=== PATIENT | male | born 1940 | race Caucasian/White ===

== ENCOUNTER 2017-06-12 15:21 | Outpatient (CLI) | payer MEDICARE ==
--- OUTSIDE RECORDS SUMMARY | 2017-06-12 15:26 | XMS | Clinical Summary ---
:1940 Author Organization [facility] Address [address] [place] [address] Phone Care Team Providers Name Role Phone , Primary Care Provider Unavailable Allergies Not on File Current Medications Not on file Active Problems Not on file Social History Tobacco Use Types Packs/Day Years Used Date Never Assessed Sex Assigned at Date Recorded Not on file Last Filed Vital Signs Not on file Plan of Treatment Not on file Results Not on filefrom Last 3 Months
--- NOTE | 2017-06-12 16:53 | MRI ---
MRI OF THE CERVICAL SPINE WITHOUT CONTRAST: Comparison: None. History: Cervical radiculopathy. Technique: Multiplanar, multisequence MRI images were obtained of the cervical spine without contras t. FINDINGS: Generalized disc desiccation is seen. There is loss of intervertebral disc space height in the mid c ervical spine. The visualized cord demonstrates normal signal throughout. The craniocervical junctio n is unremarkable. No prevertebral soft tissue swelling is seen. The paraspinal soft tissues are unr emarkable. C2-3: Unremarkable. C3-4: A moderate disc osteophyte complex is seen. Moderate bilateral posterior facet arthrosis. Mode rate central canal stenosis. Severe right and moderate left neural foraminal stenosis. C4-5: A moderate disc osteophyte complex is seen. Moderate left and mild right posterior facet arthr osis. Moderate central canal stenosis. Moderate right and mild left neural foraminal stenosis. C5-6: A large disc osteophyte complex is seen. Mild bilateral facet arthrosis. Severe central canal stenosis. Severe left and moderate right neural foraminal stenosis. C6-7: A moderate disc osteophyte complex is seen. No posterior facet arthrosis. Moderate to severe c entral canal stenosis. Severe bilateral neural foraminal stenosis. C7-T1: Unremarkable. IMPRESSION: Degenerative changes of the cervical spine as above. POS: [facility]
== END 2017-06-12 15:22 | disposition home or self-care (01) ==
LOC: MRI 15:21
PROVIDERS: ATTEND Orthopaedic Surgery Hand Surgery
DX: M54.12 Radiculopathy, cervical region (principal); M48.02 Spinal stenosis, cervical region; M47.812 Spondylosis without myelopathy or radiculopathy, cervical region
CPT/HCPCS: 72141

== ENCOUNTER 2017-07-02 07:24 | Emergency (ER) | payer MEDICARE ==
[2017-07-02 09:07] LABS: Anion Gap 14 mmol/L (10-20); BUN (Urea Nitrogen) 11 mg/dL (8.4-25.7); Calc. Creatinine Clearance 0 mL/min (70-130); Calcium 8.8 mg/dL (7.8-10.44); Carbon Dioxide 23 mmol/L (23-31); Chloride 100 mmol/L (98-107); Estimated GFR-MDRD 87
[2017-07-02 09:21] LABS: Bilirubin Negative (Negative); Blood, Urine Large (Negative); Glucose, Urine (Dipstick) Negative (Negative); Ketone, Urine Negative (Negative); Nitrite Negative (Negative); Protein, Urine (Dipstick) 100 mg/dL (Neg-Trace); Urobilinogen 0.2 mg/dL (0.2-1.0)
[2017-07-02 09:23] LABS: Bacteria/HPF Rare-Few HPF (None Seen); Hyaline Casts/LPF 0-3 HYALINE CAST LPF (0-3 Hyaline); RBC/HPF GREATER THAN 50-TNTC HPF (0-3); Squamous Epithelial None Seen HPF (0-3)
[2017-07-02 09:33] LABS: #Basophils 0.1 thou/uL (0.0-0.2); #Eosinphils 0.2 thou/uL (0.0-0.7); #Lymphocytes 1.3 thou/uL (1.20-3.40); #Monocytes 0.8 thou/uL (0.11-0.59); #Neutrophils 10.1 thou/uL (1.40-6.50); %Basophils 0.4 % (0.0-1.0); %Eosinophils 1.8 % (0.0-10.0); %Monocytes 6.4 % (0.0-10.0); Hematocrit 37.1 % (42.0-52.0); Mean Platelet Volume 6.2 fL (7.4-10.4); Red Blood Cell (RBC) Count 4.11 mill/uL (4.70-6.10); White Blood Cell (WBC) Count 12.5 thou/uL (4.8-10.8)
[2017-07-02] MEDS ORDERED: Ciprofloxacin 500 MG TAB ONE (10:26)
--- NOTE | 2017-07-02 10:26 | CT ---
CT ABDOMEN AND PELVIS WITH IV CONTRAST: Date: 07-02-17 History: Hematuria. Dysuria. Suprapubic tenderness. Comparison: None. FINDINGS: There is minimal bibasilar atelectasis. Post cholecystectomy changes are noted. There is a 3.2 cm mass involving the left adrenal gland which cannot be further characterized on thi s nonenhanced CT scan exam. The liver, spleen, pancreas, right adrenal gland, bilateral kidneys, and partially distended urinary bladder demonstrate a normal CT appearance. There is a duodenum diverticulum seen at the junction of the second and third portion of the duodenu m. A few scattered colonic diverticula are noted. The appendix is normal in caliber. A few prominent but nonspecific loops of small bowel are seen in the pelvis. Degenerative changes are noted in the spine. There is grade I to II anterolisthesis of L 5 on S1. There is a small subcentimeter sclerotic lesion in the right iliac bone just to the sacroiliac joint which is probably related to small bowel island. No additional lytic or osseous lesions are seen. IMPRESSION: 1. Left adrenal nodule measuring 3.2 cm which cannot be further characterized on this exam. CT scan examination of the abdomen without IV contrast is recommended for further evaluation. 2. Post cholecystectomy changes. 3. Evidence of prostatectomy. 4. Duodenal diverticulum. 5. No acute findings in the abdomen or pelvis. 6. Degenerative changes in the spine with grade I to II anterolisthesis of L5 on S1. 7. Atherosclerotic vascular disease. POS: [facility]
[2017-07-02] MEDS ORDERED: ISOVUE-370 76%-LOCM 1 ML ONE (16:03)
--- OUTSIDE RECORDS SUMMARY | 2017-07-08 11:27 | XMS | Clinical Summary ---
:1940 Author Organization [facility] Address [address] [place] [address] Phone Care Team Providers Name Role Phone [...]
== END 2017-07-02 10:40 | disposition home or self-care (01) ==
LOC: ERS 07:24
DX: N30.91 Cystitis, unspecified with hematuria (principal); E11.9 Type 2 diabetes mellitus without complications; E78.5 Hyperlipidemia, unspecified; I10 Essential (primary) hypertension; Z85.46 Personal history of malignant neoplasm of prostate; Z79.4 Long term (current) use of insulin; Z79.899 Other long term (current) drug therapy
CPT/HCPCS: 36415; 74177; 80048; 81003; 81015; 85025; 87077; 87086; 87186; 96360; 96361

== ENCOUNTER 2017-07-05 13:55 | Outpatient (CLI) | payer MEDICARE ==
[2017-07-05 15:49] LABS: Hematocrit 39.1 % (42.0-52.0); Mean Platelet Volume 6.9 fL (7.4-10.4); Red Blood Cell (RBC) Count 4.36 mill/uL (4.70-6.10)
[2017-07-05 16:02] LABS: Anion Gap 14 mmol/L (10-20); BUN (Urea Nitrogen) 11 mg/dL (8.4-25.7); Calc. Creatinine Clearance 0 mL/min (70-130); Calcium 9.2 mg/dL (7.8-10.44); Carbon Dioxide 25 mmol/L (23-31); Chloride 100 mmol/L (98-107); Estimated GFR-MDRD 82
== END 2017-07-05 13:56 | disposition home or self-care (01) ==
LOC: LABBT 13:55
PROVIDERS: ATTEND Neurological Surgery
DX: Z01.818 Encounter for other preprocedural examination (principal); M47.12 Other spondylosis with myelopathy, cervical region
CPT/HCPCS: 80048; 85027; 93005; 93010

== ENCOUNTER → 2017-07-08 | Day surgery (SDC) | payer MEDICARE ==
[2017-07-05 14:15] VITALS: BMI 25.0
[~2017-07-08] MED LIST: Bacitracin Zinc Ointment 30 gm TUBE ONE; CEFAZOLIN/Water 2 GM/20 ML SYRINGE ONE; Fentanyl 250 MCG/5 ML VIAL ONE; Midazolam HCl 2 mg/2 ml Vial ONE
--- NOTE | 2017-07-08 11:50 | CON ---
DATE OF CONSULTATION: 07/08/2017 REFERRING PHYSICIAN: Dr. David Palomares REASON FOR CONSULTATION: Preoperative cardiovascular clearance prior to spinal surgery. HISTORY OF PRESENT ILLNESS: Mr. Munoz is a 77-year-old gentleman who presents for electi ve spinal surgery under the care of Dr. David Palomares. His preoperative EKG showed an isolated Q-wave in lead III, read out as prior inferior wall WI, age indeterminate. Mr. Munoz has never had any cardiac issues and his only risk factor includes hypertension and diabe yusuf, as well as dyslipidemia, all of which have been well treated medically. He denied clinical symptoms with or without activity and he is relatively active outdoors on a regul ar basis. He is not limited by shortness of breath, dyspnea on exertion, orthopnea, lower extremity edema, palpitations, syncope, near syncope or claudication. PAST MEDICAL HISTORY: 1. Hypertension. 2. Dyslipidemia. 3. Type 2 diabetes mellitus. 4. History of prostate cancer. PAST SURGICAL HISTORY: 1. Tonsillectomy. 2. Prostatectomy. 3. Cholecystectomy. ALLERGIES: No known drug allergies. SOCIAL HISTORY: He uses alcohol socially, but not to excess. He denies drug use or tobacco use his tory. FAMILY HISTORY: Negative with respect to premature atherosclerosis. CURRENT MEDICATIONS: 1. Januvia 100 mg daily. 2. Simvastatin 10 mg b.i.d. 3. Metformin 1000 mg b.i.d. 4. Lisinopril 5 mg daily. REVIEW OF SYSTEMS: As per the history of present illness. Remainder of 12 system review is negativ e. PHYSICAL EXAMINATION: VITAL SIGNS: Blood pressure 136/78, pulse 74 and regular, respiratory rate 18 and nonlabored, tempe rature 98.8. GENERAL: This is a well-developed, well-nourished 77-year-old gentleman in no acute distr ess. He is alert and oriented x4, he answers questions appropriately. HEENT: Head was atraumatic, normocephalic. Pupils are equally round and reactive. Sclerae and con junctivae are clear. There are no oral lesions. NECK: Supple, no JVD, thyromegaly, carotid bruits. CHEST: Symmetrical inspiration and expiration. HEART: Regular in rate and rhythm. No murmur, S3, S4. PMI is nondisplaced, not enlarged. LUNGS: Clear to auscultation in all bob. No adventitious sounds appreciated. ABDOMEN: Soft, nontender, nondistended, without mass or organomegaly. Bowel sounds are present in all 4 quadrants. No flank bruits auscultated. EXTREMITIES: 2+ pulses noted bilaterally. Upper and lower extremity strength is 5/5 bilaterally. There is no clubbing, cyanosis or edema. NEUROLOGIC: Grossly intact without focal motor deficits appreciated. DATABASE: EKG reveals sinus rhythm with an isolated Q-wave in lead III. ST segments are normal. Labs are not available for review at this time. ASSESSMENT: 1. Radicular symptoms requiring surgical intervention. 2. Hypertension, controlled. 3. Dyslipidemia, on therapy. 4. Type 2 diabetes mellitus, managed with oral agents, controlled. RECOMMENDATIONS: 1. From a cardiac standpoint, he is stable and cleared for moving forward with noncardiac surgery. He is clinically asymptomatic and his EKG does not reflect evidence of prior WI. He has an isolate d Q-wave in lead III, normal variant in this case. He may proceed without additional cardiac testi ng with a low risk for perioperative cardiovascular events. 2. Please contact me perioperative if there are issues that arise. Otherwise, no followup is necmarleny anjelica. I appreciate the opportunity to participate.
--- OUTSIDE RECORDS SUMMARY | 2017-07-10 15:00 | XMS | Clinical Summary ---
:1940 Author Organization [facility] Address [address] [place] [address] Phone Care Team Providers Name Role Phone [...]
== END ==
LOC: SDC 07:07
PROVIDERS: ATTEND Neurological Surgery
DX: M47.12 Other spondylosis with myelopathy, cervical region (principal); Z53.8 Procedure and treatment not carried out for other reasons; I10 Essential (primary) hypertension; E78.5 Hyperlipidemia, unspecified; E11.9 Type 2 diabetes mellitus without complications; Z79.84 Long term (current) use of oral hypoglycemic drugs; Z79.899 Other long term (current) drug therapy; Z96.1 Presence of intraocular lens; Z90.49 Acquired absence of other specified parts of digestive tract; Z90.79 Acquired absence of other genital organ(s); Z90.89 Acquired absence of other organs
CPT/HCPCS: J2250; J3010; J3490

== ENCOUNTER 2017-07-10 09:21 | Day surgery (SDC) | payer MEDICARE ==
[2017-07-09 12:04] VITALS: BMI 25.0
[2017-07-10] MEDS ORDERED: Bupivacaine PF 0.5% 30 ML VIAL ONE (09:55)
[2017-07-10] MEDS ORDERED: Bacitracin Zinc Ointment 30 gm TUBE ONE (09:55)
[2017-07-10] MEDS ORDERED: CEFAZOLIN/Water 2 GM/20 ML SYRINGE ONE ×2 (10:25→17:27)
[2017-07-10] MEDS ORDERED: Thrombin 5000 UNITS/5 ML VIAL ONE (10:44)
[2017-07-10] MEDS ORDERED: Fentanyl 250 MCG/5 ML VIAL ONE (10:53)
[2017-07-10] MEDS ORDERED: Midazolam HCl 2 mg/2 ml Vial ONE (10:53)
[2017-07-10] MEDS ORDERED: PHENYLEPHRINE-NS 100 MCG/ML 10 ML SYRINGE ONE (11:21)
[2017-07-10] MEDS ORDERED: Dexamethasone 20 MG/5 ML VIAL ONE (11:21)
[2017-07-10] MEDS ORDERED: ePHEDrine/0.9% NaCl/PF SYRINGE 50 mg/10 ml ONE (11:21)
[2017-07-10] MEDS ORDERED: Propofol 200 MG/20 ML VIAL ONE ×2 (11:21)
[2017-07-10] MEDS ORDERED: Ondansetron HCl/PF 4 MG/2 ML Vial ONE ×2 (11:21→17:01)
[2017-07-10] MEDS ORDERED: Labetalol HCl 100 MG/20 ML VIAL ONE (13:16)
[2017-07-10] MEDS ORDERED: Fentanyl 100 MCG/2 ML VIAL ONE (13:52)
--- NOTE | 2017-07-10 14:00 | OP ---
DATE OF PROCEDURE: 07/10/2017 SURGEON: David Palomares M.D. BREAKING MACHINE OPERATOR: Jones Wallace PA-C INDICATION: Prevent neurologic decline. DIAGNOSIS: Cervical myelopathy. PROCEDURE: Posterior cervical laminectomy C1. ANESTHESIA: General. TECHNIQUE: The patient was brought into the operating room and placed under general anesthesia. He was placed in 3-point Mcelroy franklin. He was flipped from a supine to a prone position on the ope rating room table. He was carefully positioned in a neutral position. A linear incision was planne d at the base of the occiput. After prepping and draping and after an appropriate operative pause, the incision was created. The underlying muscles were identified and split longitudinally along the midline. A self-retaining retractor was placed. We dissected down until we reached the posterior arch of C1. A high-speed cutting drill bit and 1 and 2 mm Kerrisons were used to carefully remove t he posterior lamina of C1. Wound was irrigated. Hemostasis was maintained throughout. The wound w as then closed in anatomic layers and a pressure dressing was applied. There were no known procedur al complications.
[2017-07-10] MEDS ORDERED: Tamsulosin HCl 0.4 MG CAP ONE (14:54)
[2017-07-10] MEDS ORDERED: Acetaminophen/Codeine 30-300mg Tablet ONE (15:12)
[2017-07-10] MEDS ORDERED: Morphine 2 MG/ML SYRINGE ONE (15:13)
[2017-07-10] MEDS ORDERED: hydrALAZINE 20 MG/ML VIAL ONE (16:08)
[2017-07-10] MEDS ORDERED: Promethazine HCl 25 MG/ML VIAL ONE (17:40)
--- OUTSIDE RECORDS SUMMARY | 2017-07-11 16:13 | XMS | Clinical Summary ---
:1940 Author Organization [facility] Address [address] [place] [address] Phone Care Team Providers Name Role Phone [...]
== END 2017-07-10 18:10 | disposition home or self-care (01) ==
LOC: SDC 09:21 → SDC/OP 18:10
PROVIDERS: ATTEND Neurological Surgery
PROC: 00NW0ZZ Release Cervical Spinal Cord, Open Approach (ICD-10-PCS; principal; 2017-07-10)
DX: M50.01 Cervical disc disorder with myelopathy, high cervical region (principal); I10 Essential (primary) hypertension; E78.5 Hyperlipidemia, unspecified; E11.9 Type 2 diabetes mellitus without complications; Z79.2 Long term (current) use of antibiotics; Z79.82 Long term (current) use of aspirin; Z79.84 Long term (current) use of oral hypoglycemic drugs; Z79.899 Other long term (current) drug therapy; Z96.1 Presence of intraocular lens; Z90.89 Acquired absence of other organs; Z90.49 Acquired absence of other specified parts of digestive tract; Z90.79 Acquired absence of other genital organ(s); Z85.46 Personal history of malignant neoplasm of prostate
CPT/HCPCS: 96374; 96375; J0360; J1100; J2250; J2270; J2405; J2550; J2704; J3010; J3490; S0020

== ENCOUNTER 2020-07-06 11:46 | Emergency (ER) | payer MEDICARE ==
--- NOTE | 2020-07-06 14:49 | ULT ---
EXAM: Right lower extremity venous Doppler HISTORY: Right leg pain. FINDINGS: Grayscale, color-flow, Doppler evaluation, spectral analysis of the right lower extremity venous stru ctures is performed with 2-D imaging. The right common femoral, superficial femoral, popliteal, posterior tibial, proximal greater saphenous and profunda femoral veins are imaged. There is normal luminal compressibility, flow, and augmentation in the visualized deep venous structu res of the right lower extremity. IMPRESSION: No evidence of a deep vein thrombosis in the visualized deep venous structures right lower extremity.
== END 2020-07-06 15:37 | disposition home or self-care (01) ==
LOC: ERS 11:46
DX: M79.651 Pain in right thigh (principal); E11.9 Type 2 diabetes mellitus without complications; E78.5 Hyperlipidemia, unspecified; E78.00 Pure hypercholesterolemia, unspecified; I10 Essential (primary) hypertension; Z85.46 Personal history of malignant neoplasm of prostate; Z79.82 Long term (current) use of aspirin; Z79.899 Other long term (current) drug therapy; Z79.84 Long term (current) use of oral hypoglycemic drugs

== ENCOUNTER 2022-03-14 21:40 | Emergency (ER) | payer OTHER, MEDICARE ==
[2022-03-14] MEDS ORDERED: Boostrix 0.5 ML (Tdap) VIAL ONE (22:13)
[2022-03-14] MEDS ORDERED: Bacitracin 1 PK ONE ×2 (22:22→22:29)
== END 2022-03-14 22:58 | disposition home or self-care (01) ==
LOC: ERS 21:40
DX: S61.021A Laceration with foreign body of right thumb without damage to nail, initial encounter (principal); S51.011A Laceration without foreign body of right elbow, initial encounter; I10 Essential (primary) hypertension; E78.00 Pure hypercholesterolemia, unspecified; E11.9 Type 2 diabetes mellitus without complications; E78.5 Hyperlipidemia, unspecified; Z79.899 Other long term (current) drug therapy; Z79.82 Long term (current) use of aspirin; Z79.84 Long term (current) use of oral hypoglycemic drugs; Z23 Encounter for immunization; W01.198A Fall on same level from slipping, tripping and stumbling with subsequent striking against other object, initial encounter
CPT/HCPCS: 90471; 90715

== ENCOUNTER 2022-03-24 07:12 | Emergency (ER) | payer MEDICARE ==
[2022-03-24] MEDS ORDERED: Acetaminophen 325 MG TAB ONE (09:13)
[2022-03-24] MEDS ORDERED: Ibuprofen 200 MG TAB ONE (09:13)
== END 2022-03-24 10:06 | disposition home or self-care (01) ==
LOC: ERS 07:12
DX: M25.50 Pain in unspecified joint (principal); M79.10 Myalgia, unspecified site; Z20.822 Contact with and (suspected) exposure to COVID-19; E11.9 Type 2 diabetes mellitus without complications; E78.5 Hyperlipidemia, unspecified; I10 Essential (primary) hypertension; Z79.899 Other long term (current) drug therapy; Z79.84 Long term (current) use of oral hypoglycemic drugs
CPT/HCPCS: U0003; U0005; 99283

== ENCOUNTER 2023-08-22 06:22 | Emergency (ER) | payer MEDICARE ==
[2023-08-22 06:55] LABS: #Eosinphils 0.2 thou/uL (0.0-0.7); #Monocytes 0.5 thou/uL (0.11-0.59); #Neutrophils 5.8 thou/uL (1.40-6.50); %Basophils 0.5 % (0.0-1.0); %Lymphocytes 17.8 % (21.0-51.0); %Monocytes 6.1 % (0.0-10.0); %Neutrophils 72.2 % (42.0-75.0); Hematocrit 35.1 % (42.0-52.0); Mean Corpuscular HGB CONC 31.3 g/dL (32.0-36.0); Mean Corpuscular Hemoglobin 27.1 pg (27.0-31.0); Mean Corpuscular Volume 86.5 fl (78.0-98.0); Mean Platelet Volume 9.7 fL (7.4-10.4); Platelet Count 297 10x3/uL (130-400); Red Blood Cell (RBC) Count 4.06 mill/uL (4.70-6.10)
[2023-08-22 07:23] LABS: ALT (SGPT) 9 U/L (8-55); AST (SGOT) 13 U/L (5-34); Albumin 3.9 g/dL (3.4-4.8); Alkaline Phosphatase 88 U/L (40-110); Anion Gap 12 mmol/L (10-20); BUN (Urea Nitrogen) 13 mg/dL (8.4-25.7); Bilirubin, Total 0.4 mg/dL (0.2-1.2); Calc. Creatinine Clearance 0 mL/min (70-130); Calcium 9.4 mg/dL (7.8-10.44); Carbon Dioxide 27 mmol/L (23-31); Chloride 106 mmol/L (98-107); Estimated GFR 90; Globulin 3.2 g/dL (2.4-3.5); Glucose 130 mg/dL (83-110); Potassium 3.9 mmol/L (3.5-5.1); Protein, Total 7.1 g/dL (5.8-8.1); Sodium 141 mmol/L (136-145)
[2023-08-22 07:24] LABS: Troponin I Less than 0.010 ng/mL (< 0.028)
== END 2023-08-22 08:12 | disposition home or self-care (01) ==
LOC: ERS 06:22
DX: I10 Essential (primary) hypertension (principal); R20.2 Paresthesia of skin; E11.9 Type 2 diabetes mellitus without complications; Z79.899 Other long term (current) drug therapy
CPT/HCPCS: 36415; 71045; 80053; 83880; 84484; 85025; 93005

== ENCOUNTER 2023-12-12 14:05 | Outpatient (CLI) | payer MEDICARE ==
[~2023-12-12 14:05] MED LIST changes: -Bacitracin Zinc Ointment 30 gm TUBE ONE; -CEFAZOLIN/Water 2 GM/20 ML SYRINGE ONE; -Fentanyl 250 MCG/5 ML VIAL ONE; +Iopamidol 370 76% 100 ML VIAL ONE; -Midazolam HCl 2 mg/2 ml Vial ONE
== END 2023-12-12 14:06 | disposition home or self-care (01) ==
LOC: BICCT 14:05
PROVIDERS: ATTEND Internal Medicine
DX: C61 Malignant neoplasm of prostate (principal); E27.8 Other specified disorders of adrenal gland; D35.02 Benign neoplasm of left adrenal gland
CPT/HCPCS: 71260; 74178; Q9967

== ENCOUNTER 2025-07-08 01:55 | Inpatient (IN) | payer MEDICARE ==
[2025-07-08 02:45] LABS: #Basophils Less than 0.03 10x3/uL (0.0-0.2); #Eosinophils 0.07 10x3/uL (0.0-0.7); #Monocytes 0.80 10x3/uL (0.11-0.59); #Neutrophils 6.53 10x3/uL (1.40-6.50); %Basophils 0.2 % (0.0-1.0); %Eosinophils 0.7 % (0.0-10.0); %Lymphocytes 22.1 % (21.0-51.0); %Monocytes 8.4 % (0.0-10.0); %Neutrophils 68.2 % (42.0-75.0); Hematocrit 32.5 % (42.0-52.0); Hemoglobin 11.3 g/dL (14.0-18.0); Mean Corpuscular Hemoglobin 27.8 pg (27.0-31.0); Mean Corpuscular Volume 79.9 fL (78.0-98.0); Platelet Count 289 10x3/uL (130-400); Red Blood Cell (RBC) Count 4.07 mill/uL (4.70-6.10); White Blood Cell (WBC) Count 9.58 10x3/uL (4.8-10.8)
[2025-07-08] MEDS ORDERED: Ondansetron PF 4 MG/2 ML Vial ONE (02:49)
[2025-07-08 03:12] LABS: ALT (SGPT) 24 U/L (Less than 45); AST (SGOT) 59 U/L (11-34); Albumin 3.8 g/dL (3.1-4.5); Alkaline Phosphatase 73 U/L (40-110); Anion Gap 15 mmol/L (10-20); BUN (Urea Nitrogen) 21 mg/dL (8.4-25.7); Bilirubin, Total 0.8 mg/dL (0.3-1.2); Calc. Creatinine Clearance 0 mL/min (70-130); Calcium 9.1 mg/dL (7.8-10.44); Carbon Dioxide 25 mmol/L (23-31); Chloride 82 mmol/L (98-107); Globulin 3.2 g/dL (2.4-3.5); Glucose 123 mg/dL (83-110); Lipase 10 U/L (8-78); Potassium 3.7 mmol/L (3.5-5.1); Sodium 118 mmol/L (136-145)
[2025-07-08 04:26] LABS: Bacteria/HPF None Seen HPF (None Seen); CAUTI Indications for Culture Alt mental st,lethar; Glucose, Urine (Dipstick) Normal (Negative); Leukocyte Negative Leu/uL (Negative); Protein, Urine (Dipstick) Negative (Neg-Trace); RBC/HPF None Seen HPF (0-3); Specific Gravity, Urine 1.018 (1.002-1.036); WBC/HPF 0-3 HPF (0-3)
[2025-07-08 04:28] LABS: Urine Culture Reflex No No
[2025-07-08] MEDS ORDERED: Dextrose 50% Abboject 50 ML SYRINGE SLOW IVP PRN (05:32)
[2025-07-08] MEDS ORDERED: Glucagon 1 MG/ML KIT IM PRN (05:32)
[2025-07-08 06:44] VITALS: BMI 22.9
[2025-07-08 09:34] LABS: Anion Gap 10 mmol/L (10-20); BUN (Urea Nitrogen) 17 mg/dL (8.4-25.7); Calc. Creatinine Clearance 70 mL/min (70-130); Calcium 8.6 mg/dL (7.8-10.44); Carbon Dioxide 24 mmol/L (23-31); Chloride 87 mmol/L (98-107); Glucose 159 mg/dL (83-110); Potassium 3.4 mmol/L (3.5-5.1); Sodium 118 mmol/L (136-145)
[2025-07-08] MEDS: Carvedilol 3.125 MG TAB PO SCH (10:00)
[2025-07-08] MEDS: metFORMIN 500 MG TAB PO SCH (10:01)
[2025-07-08 12:01] LABS: Osmolality, Serum 253 mOsm/kg (280-301)
[2025-07-08 13:24] LABS: Anion Gap 12 mmol/L (10-20); BUN (Urea Nitrogen) 16 mg/dL (8.4-25.7); Calc. Creatinine Clearance 78 mL/min (70-130); Calcium 8.1 mg/dL (7.8-10.44); Carbon Dioxide 24 mmol/L (23-31); Chloride 87 mmol/L (98-107); Glucose 122 mg/dL (83-110); Potassium 3.2 mmol/L (3.5-5.1); Sodium 120 mmol/L (136-145)
[2025-07-08] MEDS ORDERED: Iopamidol 370 76% 100 ML VIAL ONE (14:27)
[2025-07-08] MEDS: Baclofen 10 MG TAB PO SCH (18:46)
[2025-07-08] MEDS: Melatonin 3 MG TAB PO SCH (21:00)
[2025-07-08] MEDS: Lisinopril 20 MG TAB PO SCH (21:01)
[2025-07-08] MEDS: Aspirin Chewable 81 MG TAB PO SCH (21:09)
[2025-07-09 00:26] LABS: Anion Gap 11 mmol/L (10-20); BUN (Urea Nitrogen) 11 mg/dL (8.4-25.7); Calc. Creatinine Clearance 85 mL/min (70-130); Calcium 8.0 mg/dL (7.8-10.44); Carbon Dioxide 22 mmol/L (23-31); Chloride 89 mmol/L (98-107); Glucose 98 mg/dL (83-110); Potassium 3.4 mmol/L (3.5-5.1); Sodium 119 mmol/L (136-145)
[2025-07-09 03:40] LABS: Osmolality, Urine 328 mOsm/kg (50-1200)
[2025-07-09 04:05] LABS: #Basophils Less than 0.03 10x3/uL (0.0-0.2); #Eosinophils 0.15 10x3/uL (0.0-0.7); #Monocytes 0.75 10x3/uL (0.11-0.59); #Neutrophils 3.95 10x3/uL (1.40-6.50); %Basophils 0.3 % (0.0-1.0); %Eosinophils 2.3 % (0.0-10.0); %Lymphocytes 25.9 % (21.0-51.0); %Monocytes 11.3 % (0.0-10.0); %Neutrophils 59.7 % (42.0-75.0); Hematocrit 26.9 % (42.0-52.0); Hemoglobin 9.4 g/dL (14.0-18.0); Mean Corpuscular Hemoglobin 28.6 pg (27.0-31.0); Mean Corpuscular Volume 81.8 fL (78.0-98.0); Platelet Count 238 10x3/uL (130-400); Red Blood Cell (RBC) Count 3.29 mill/uL (4.70-6.10); White Blood Cell (WBC) Count 6.61 10x3/uL (4.8-10.8)
[2025-07-09 04:36] LABS: Anion Gap 10 mmol/L (10-20); BUN (Urea Nitrogen) 10 mg/dL (8.4-25.7); Calc. Creatinine Clearance 89 mL/min (70-130); Calcium 8.0 mg/dL (7.8-10.44); Carbon Dioxide 25 mmol/L (23-31); Chloride 91 mmol/L (98-107); Glucose 94 mg/dL (83-110); Potassium 3.5 mmol/L (3.5-5.1); Sodium 122 mmol/L (136-145)
[2025-07-09 06:46] LABS: Anion Gap 10 mmol/L (10-20); BUN (Urea Nitrogen) 10 mg/dL (8.4-25.7); Calc. Creatinine Clearance 87 mL/min (70-130); Calcium 8.0 mg/dL (7.8-10.44); Carbon Dioxide 25 mmol/L (23-31); Chloride 93 mmol/L (98-107); Glucose 96 mg/dL (83-110); Potassium 3.3 mmol/L (3.5-5.1); Sodium 125 mmol/L (136-145)
[2025-07-09] MEDS: Magnesium 2 GM/50 ML(in water) 2 GM in Premix 1 BAG IVPB SCH (11:10)
[2025-07-09 12:16] LABS: Anion Gap 13 mmol/L (10-20); BUN (Urea Nitrogen) 11 mg/dL (8.4-25.7); Calc. Creatinine Clearance 93 mL/min (70-130); Calcium 8.2 mg/dL (7.8-10.44); Carbon Dioxide 25 mmol/L (23-31); Chloride 93 mmol/L (98-107); Glucose 146 mg/dL (83-110); Potassium 3.7 mmol/L (3.5-5.1); Sodium 127 mmol/L (136-145)
[2025-07-10 04:05] LABS: #Basophils Less than 0.03 10x3/uL (0.0-0.2); #Eosinophils 0.13 10x3/uL (0.0-0.7); #Monocytes 0.72 10x3/uL (0.11-0.59); #Neutrophils 3.71 10x3/uL (1.40-6.50); %Basophils 0.3 % (0.0-1.0); %Eosinophils 2.1 % (0.0-10.0); %Lymphocytes 26.2 % (21.0-51.0); %Monocytes 11.6 % (0.0-10.0); %Neutrophils 59.5 % (42.0-75.0); Hematocrit 26.6 % (42.0-52.0); Hemoglobin 8.9 g/dL (14.0-18.0); Mean Corpuscular Hemoglobin 28.0 pg (27.0-31.0); Mean Corpuscular Volume 83.6 fL (78.0-98.0); Platelet Count 211 10x3/uL (130-400); Red Blood Cell (RBC) Count 3.18 mill/uL (4.70-6.10); White Blood Cell (WBC) Count 6.23 10x3/uL (4.8-10.8)
[2025-07-10 04:19] LABS: Anion Gap 10 mmol/L (10-20); BUN (Urea Nitrogen) 8 mg/dL (8.4-25.7); Calc. Creatinine Clearance 93 mL/min (70-130); Calcium 8.3 mg/dL (7.8-10.44); Carbon Dioxide 23 mmol/L (23-31); Chloride 100 mmol/L (98-107); Glucose 95 mg/dL (83-110); Potassium 4.0 mmol/L (3.5-5.1); Sodium 129 mmol/L (136-145)
[2025-07-10 14:41] LABS: Anion Gap 15 mmol/L (10-20); BUN (Urea Nitrogen) 7 mg/dL (8.4-25.7); Calc. Creatinine Clearance 88 mL/min (70-130); Calcium 8.3 mg/dL (7.8-10.44); Carbon Dioxide 23 mmol/L (23-31); Chloride 100 mmol/L (98-107); Glucose 147 mg/dL (83-110); Potassium 4.2 mmol/L (3.5-5.1); Sodium 134 mmol/L (136-145)
[2025-07-11 04:41] LABS: #Basophils 0.03 10x3/uL (0.0-0.2); #Eosinophils 0.25 10x3/uL (0.0-0.7); #Monocytes 0.78 10x3/uL (0.11-0.59); #Neutrophils 6.59 10x3/uL (1.40-6.50); %Basophils 0.3 % (0.0-1.0); %Eosinophils 2.5 % (0.0-10.0); %Lymphocytes 22.6 % (21.0-51.0); %Monocytes 7.9 % (0.0-10.0); %Neutrophils 66.3 % (42.0-75.0); Hematocrit 31.0 % (42.0-52.0); Hemoglobin 10.0 g/dL (14.0-18.0); Mean Corpuscular Hemoglobin 27.6 pg (27.0-31.0); Mean Corpuscular Volume 85.6 fL (78.0-98.0); Platelet Count 246 10x3/uL (130-400); Red Blood Cell (RBC) Count 3.62 mill/uL (4.70-6.10); White Blood Cell (WBC) Count 9.93 10x3/uL (4.8-10.8)
[2025-07-11] MEDS: Losartan 25 MG TAB PO SCH (10:42)
[2025-07-11 11:31] LABS: Anion Gap 16 mmol/L (10-20); BUN (Urea Nitrogen) 10 mg/dL (8.4-25.7); Calc. Creatinine Clearance 89 mL/min (70-130); Calcium 9.0 mg/dL (7.8-10.44); Carbon Dioxide 22 mmol/L (23-31); Chloride 102 mmol/L (98-107); Glucose 152 mg/dL (83-110); Potassium 4.2 mmol/L (3.5-5.1); Sodium 136 mmol/L (136-145)
[2025-07-11 14:10] VITALS: BP 154/95; TEMP 98.2
[2025-07-12] MEDS ORDERED: Losartan 25 MG TAB PO SCH (09:00)
== END 2025-07-11 16:09 | disposition home or self-care (01) | DRG 644 ==
LOC: ERS 01:55 → PCU 04:45
PROVIDERS: ADMIT Student in an Organized Health Care Education/Training Program; ATTEND Internal Medicine
DX: E22.2 Syndrome of inappropriate secretion of antidiuretic hormone (principal); C74.90 Malignant neoplasm of unspecified part of unspecified adrenal gland; I10 Essential (primary) hypertension; E78.5 Hyperlipidemia, unspecified; F10.90 Alcohol use, unspecified, uncomplicated; E27.8 Other specified disorders of adrenal gland; I25.10 Atherosclerotic heart disease of native coronary artery without angina pectoris; K52.9 Noninfective gastroenteritis and colitis, unspecified; E86.9 Volume depletion, unspecified; R73.03 Prediabetes; Z98.890 Other specified postprocedural states; Z90.49 Acquired absence of other specified parts of digestive tract; Z90.79 Acquired absence of other genital organ(s); Z90.89 Acquired absence of other organs
CPT/HCPCS: 36415; 36416; 74022; 74177; 80048; 80053; 80061; 81001; 83605; 83690; 83880; 83930; 83935; 84100; 84300; 84484; 85025; 93005; 96374; J2405; J3475; J7030; Q9967